=== PATIENT | female | born 1935 | race Caucasian/White ===

== ENCOUNTER 2023-07-15 11:51 | Day surgery (SDC) | payer MEDICARE, MEDICAID, SELFPAY ==
--- NOTE | 2023-07-15 | EGD_PTH ---
PATIENT: KURT MATHEWS LOC: EN U#:[id number] AGE/SX: 88/F ROOM: RE07/15/[address]: Dr. Frantz Romero DO : 1935 BED: DIS: 07/15/2023 SPEC #: [id number] RECD: 07/15/23 16:23 STATUS: VIRIDIANA DOWNEY #: [id number] REYNA: 07/15/23 00:[address]: Frantz Romero DEPT: SURGICAL PATHOLOGY RECD BY: Albert Lincoln ENTERED: 07/16/23 07:41 SP TYPE: EGD BIOPSY OT DR: Dr. Blake Guzman MD Tissues: A - Duodenum, NOS B - Gastric mucous membrane C - Esophageal mucous membrane Procedures: Special Stain Group II Surgery Specimen Level IV Alcian Blue/PAS (control) HEADER OPERATION: EGD with biopsies PRE-OP DIAGNOSIS: Abnormal CT of the abdomen, nausea, vomiting TISSUE SUBMITTED: A - Duodenal ulcer, B - Gastric body biopsy, C - Distal esophagus lesion MICROSCOPIC DIAGNOSIS A. Duodenal ulcer, biopsy: Minimal nonspecific chronic inflammation. B. Gastric body, biopsy: Chronic gastritis. See comment. C. Distal esophagus, biopsy: Gastroesophageal junctional mucosa with mild chronic inflammation. No evidence of goblet cell metaplasia. See comment. AM:fabienne 07/17/2023 COMMENT B. The results of immunohistochemistry for Helicobacter pylori will be reported separately ([id number]). C. Alcian blue/PAS stain with matched control supports the above diagnosis. MICROSCOPIC DESCRIPTION Slides are reviewed. GROSS DESCRIPTION A - Received in fixative is one container labeled with the patient's name and designated duodenal ulcer. The specimen consists of multiple irregular fragments of light nolan soft tissue that in aggregate measure 1.0 x 0.3 x 0.1 cm. The specimen is totally submitted in one cassette. B - Received in fixative is one container labeled with the patient's name and designated gastric body biopsy. The specimen consists of multiple irregular fragments of light nolan soft tissue that in aggregate measure 1.5 x 0.5 x 0.1 cm. The specimen is totally submitted in one cassette. C - Received in fixative is one container labeled with the patient's name and designated distal esophagus. The specimen consists of one irregular fragment of light nolan soft tissue that measures 0.6 x 0.3 x 0.1 cm. The specimen is totally submitted in one cassette. / AM:fabienne 07/16/2023 TC:3 CPT: 50687 x3, 68544
[2023-07-15] MEDS: Lactated Ringers 1,000 ML 15 ML IV (12:33)
[2023-07-15 12:41] VITALS: BP 145/81; PULSE 100; RESP 18; TEMP 35.8; O2SAT 93; BMI 26.9
--- NOTE | 2023-07-15 13:07 | HP.PCM_ITS ---
History and Physical Date of Admission: 07/15/23 88 F who presents to the office today for Residing in [facility] with a history of drug induced parkinsonism, weakness, dementia, hyperlipidemia, depression, HTN s/p cholecystectomy, CDI history. History of acute psychiatric hospitalization for confusion, irritability and suicidal ideations. Reported pain under her ribs and underwent CT scan prompting GI referral ? Biochemical CBC, CMP, LFT without pertinent abnormality ? CT abd/pel 12.16.22 JPH pneumobilia; s/p cholecystectomy; CBD measuring 12mm with distal duct irregular calcification measuring 11x6mm; renal cyst. *BGI established 05.14.23 daily N/V and upper abdominal pain have been present this week; reports increased anxiety/depression that have been only fairly controlled recently. BM occur daily with intermittent difficulty with constipation/incomplete evacuation/hard stools. ROS Const Constitutional: No anorexia, fatigue, fever(s), weight change or sleep problems Eyes Eyes: No change in vision ENT ENT: No abnormal hearing, difficulty swallowing, mouth lesions, tongue swelling or throat swelling Resp Respiratory: No cough or shortness of breath Cardio Cardiology: No chest pain at rest, chest pain with exertion, shortness of breath or dyspnea on exertion Gastro GI: No difficulty swallowing Genitourinary-Female: No difficulty urinating or burning urination Musc Musculoskeletal: No joint pain, joint swelling, muscle weakness or decreased muscle mass Skin Skin: No hair loss in leg, yellowing of the eye, itchy eyes, rash, skin ulcer or skin swelling Neuro Neurology: No abnormal hearing, abnormal movements, confusion, unsteady gait/balance or memory loss Psych Psychiatric: No anxiety, No confusion and No memory loss Endo Endocrine: No fatigue or weight change Aller/Imm Allergy/Immunologic: No itchy eyes, throat swelling or tongue swelling Dameon/Lymp Hematologic/Lymphatic: No easy bleeding, easy bruising or enlarged lymph nodes Exam Const General: cooperative and comfortable Nutritional Appearance: average body habitus and well nourished [facility] Head: normal to inspection Ears: hearing grossly normal bilaterally Nose: external nose normal Face and sinus: normal facial exam Mouth: oral mucosae normal Throat: posterior oropharynx normal Eyes General: appearance normal, both eyes and all related structures Neck Neck: normal visual inspection Chest Chest palpation & inspection: normal inspection of the chest and normal palpation of entire chest wall Resp Effort & Inspection: normal respiratory effort Auscultation: Bilateral: Clear to Auscultation Cardio Palpation: normal PMI Rate: regular rate Rhythm: regular rhythm GI Inspection: normal to inspection Auscultation: normal bowel sounds Percussion: normal to percussion Palpation: no hepatosplenomegaly Skin General: no rashes or lesions noted Neuro General: patient alert Extrem General: normal to inspection Psych Affect: normal affect Assessment and Plan Assessment and Plan (1) Abnormal CT of the abdomen: Status: Chronic Plan: She differential diagnosis for her dilated common bile duct with some mild pneumobilia in the setting of secondary to cholecystectomy, less likely choledochal cyst, choledocholithiasis versus malignancy. Such as. I would recommend MRCP to evaluate her hepatobiliary system (2) Nausea & vomiting: Status: Chronic Qualifiers: Vomiting type: unspecified Qualified Code(s): R11.2 - Nausea with vomiting, unspecified Plan: The differential diagnosis for her nausea and vomiting with abdominal pain is peptic ulcer disease involving the stomach and/or duodenum. I will give her Protonix bid and Sucralfate BID. If she is not any better we will schedule an upper endoscopy. Medications: New I have examined the patient and the H&P has been reviewed. There are no clinical changes since date of exam.
--- NOTE | 2023-07-15 13:15 | IMM_PTH ---
PATIENT: KURT MATHEWS LOC: EN U#:[id number] AGE/SX: 88/F ROOM: RE07/15/[address]: Dr. Frantz Romero DO : 1935 BED: DIS: 07/15/2023 SPEC #: [id number] RECD: 07/16/23 13:23 STATUS: VIRIDIANA REQ #: [id number] REYNA: 07/15/23 13:[address]: Frantz Romero DEPT: IMMUNOHISTOCHEMISTRY RECD BY: Nathalie Graves ENTERED: 07/16/23 13:24 SP TYPE: IMMUNO OTHR DR: Dr. Blake Guzman MD Tissues: B - Stomach, NOS Procedures: H Pylori (initial) PHYSICIAN & INSTITUTION [place] [id number] SPECIMEN INFORMATION: Tissue Source: B - Gastric body Clinical Info: Nausea, vomiting Specimen Number: [id number] CPT code: 89118 METHODOLOGY: Deparaffinized sections of prefer/formalin-fixed tissue or PAP/DQ stained slides are incubated with monoclonal/polyclonal antibodies/oligonucleotide probes. Localization is made via biotin free immunoperoxidase method. Appropriate controls are performed and reacted as expected. Results on target cell population are indicated in the following table: RESULTS: ANTIBODY / CLONE RESULT Block B H Pylori (polyclonal) negative These tests were developed and their performance characteristics determined by [facility]. They may not have been cleared or approved by the U.S. Food and Drug Administration. The FDA has determined that such clearance or approval is not necessary. The above immunohistochemical/dualISH markers are ordered and reviewed by the Pathologist. INTERPRETATION: B. Gastric body, biopsy: Negative for Helicobacter pylori organisms. AM:fabienne 07/17/2023
[2023-07-15 13:40] VITALS: BP 110/64; BP 145/81; PULSE 73; RESP 16; TEMP 36.8; O2SAT 98
[2023-07-15 13:45] VITALS: BP 110/61; BP 145/81; PULSE 79; RESP 18; O2SAT 93
[2023-07-15 13:50] VITALS: BP 110/64; BP 145/81; PULSE 75; RESP 16; O2SAT 95
--- NOTE | 2023-07-15 13:52 | OP.EGD_ITS ---
Patient Name: Alyssa Fajardo Procedure Date: 07/15/2023 1:12 PM Date of : 1935 Age: 88 Procedure: Upper GI endoscopy Indications: Epigastric abdominal pain, Abdominal pain in the left upper quadrant Providers: Frantz Romero DO Medicines: Monitored Anesthesia Care Patient Profile: This is an 88 year old female. Refer to note in patient chart for documentation of history and physical. Patient has symptoms of acute left upper quadrant abdominal pain. Complications: No immediate complications. Procedure: Pre-Anesthesia Assessment: - Prior to the procedure, a History and Physical was performed, and patient medications and allergies were reviewed. The patient is competent. The risks and benefits of the procedure and the sedation options and risks were discussed with the patient. All questions were answered and informed consent was obtained. Patient identification and proposed procedure were verified by the physician in the pre-procedure area. Mental Status Examination: alert and oriented. Airway Examination: normal oropharyngeal airway and neck mobility. Respiratory Examination: clear to auscultation. CV Examination: normal. Prophylactic Antibiotics: The patient does not require prophylactic antibiotics. Prior Anticoagulants: The patient has taken no anticoagulant or antiplatelet agents. ASA Grade Assessment: III - A patient with severe systemic disease. After reviewing the risks and benefits, the patient was deemed in satisfactory condition to undergo the procedure. The anesthesia plan was to use monitored anesthesia care (MAC). Immediately prior to administration of medications, the patient was re-assessed for adequacy to receive sedatives. The heart rate, respiratory rate, oxygen saturations, blood pressure, adequacy of pulmonary ventilation, and response to care were monitored throughout the procedure. The physical status of the patient was re-assessed after the procedure. After obtaining informed consent, the endoscope was passed under direct vision. Throughout the procedure, the patient's blood pressure, pulse, and oxygen saturations were monitored continuously. The Endoscope was introduced through the mouth, and advanced to the second part of duodenum. The upper GI endoscopy was accomplished without difficulty. The patient tolerated the procedure well. 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 Biopsies were taken with a cold forceps for histology. Verification of patient identification for the specimen was done. Estimated blood loss was minimal. Patchy moderate inflammation characterized by congestion (edema) and erythema was found in the gastric body. Biopsies were taken with a cold forceps for histology. Verification of patient identification for the specimen was done. Biopsies were taken with a cold forceps for Helicobacter pylori testing. Verification of patient identification for the specimen was done. Estimated blood loss was minimal. Two non-bleeding linear duodenal ulcers with no stigmata of bleeding were found in the first portion of the duodenum. The largest lesion was 6 mm in largest dimension. Biopsies were taken with a cold forceps for histology. Verification of patient identification for the specimen was done. Estimated blood loss was minimal. 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 Biopsied. - Bile gastritis. Biopsied. - Non-bleeding duodenal ulcers with no stigmata of bleeding. Biopsied. Recommendation: - Discharge patient to a [facility]. - Resume previous diet. - Continue present medications. - Await pathology results. - Repeat upper endoscopy in 3 months for surveillance. - Use Protonix (pantoprazole) 40 mg PO BID for 8 weeks. - MRCP to evaluate abnormal dilation that was seen in CT scanner Procedure Code(s): --- Professional --- 91350, Esophagogastroduodenoscopy, flexible, transoral; with biopsy, single or multiple CPT copyright 2021 [employer]. All rights reserved. The codes documented in this report are preliminary and upon benefits technician review may be revised to meet current compliance requirements. Frantz Romero DO 07/15/2023 1:51:54 PM This report has been signed electronically. Number of Addenda: 0 Note Initiated On: 07/15/2023 1:12 PM
[2023-07-15 13:53] VITALS: BP 122/66; BP 145/81; PULSE 74; RESP 18; TEMP 36.7; O2SAT 94
[2023-07-15 14:11] VITALS: BP 145/81
== END 2023-07-15 14:28 | disposition home or self-care (01) ==
LOC: EN 11:55 → AC 12:00
PROVIDERS: PCP Internal Medicine; Referring Provider Internal Medicine; Visit Provider Internal Medicine Gastroenterology
PROC: 0DJ08ZZ Inspection of Upper Intestinal Tract, Via Natural or Artificial Opening Endoscopic (ICD-10-PCS; CPT 43235; principal; 2023-07-15 13:10)
DX: K26.7 Chronic duodenal ulcer without hemorrhage or perforation (principal); F03.90 Unspecified dementia, unspecified severity, without behavioral disturbance, psychotic disturbance, mood disturbance, and anxiety; K21.00 Gastro-esophageal reflux disease with esophagitis, without bleeding; K29.50 Unspecified chronic gastritis without bleeding; K31.89 Other diseases of stomach and duodenum; R10.13 Epigastric pain; G20.C Parkinsonism, unspecified; I10 Essential (primary) hypertension; E78.00 Pure hypercholesterolemia, unspecified; Z86.73 Personal history of transient ischemic attack (TIA), and cerebral infarction without residual deficits; Z86.711 Personal history of pulmonary embolism; Z79.01 Long term (current) use of anticoagulants; Z79.899 Other long term (current) drug therapy
CPT/HCPCS: 43239; 88305; 88313; 88342; J7120; J2405

== ENCOUNTER → 2023-07-28 | Outpatient (CLI) | payer MEDICARE, MEDICAID, SELFPAY ==
--- NOTE | 2023-07-28 08:17 | MRI_ITS ---
EXAM: MR ABDOMEN WITHOUT INTRAVENOUS CONTRAST, MRCP PROTOCOL CLINICAL INDICATION: abnormal CT findings TECHNIQUE: Multiplanar and multisequence MR images of the abdomen without intravenous contrast obtained with MRCP sequence. Three-dimensional post-processing reconstructions were performed. COMPARISON: No relevant prior studies available. FINDINGS: LOWER THORAX: Unremarkable. No pleural effusion. LIVER: Unremarkable. Normal morphology. GALLBLADDER AND BILE DUCTS: Gallbladder not visualized. Dilated common bile duct measuring up to 1.2 cm with mild intrahepatic biliary dilatation due to multiple small stones in the distal common bile duct. PANCREAS: Small cyst measuring 9 mm in the tail the pancreas. No pancreatic duct dilation. SPLEEN: Unremarkable. Non-enlarged. ADRENALS: Unremarkable. No nodules. KIDNEYS AND URETERS: Simple bilateral renal cysts. No follow-up of these simple cysts is necessary. Normal renal size and position. No hydronephrosis. INTRAPERITONEAL SPACE: Unremarkable. No ascites or other fluid collection. VASCULATURE: Unremarkable. Abdominal aorta is non-dilated. LYMPH NODES: No enlarged lymph nodes. MRI/MRCP Abdomen without Contrast IMPRESSION: 1. Gallbladder not visualized. 2. Dilated common bile duct measuring up to 1.2 cm with mild intrahepatic biliary dilatation due to multiple small stones in the distal common bile duct. 3. Small cyst measuring 9 mm in the tail the pancreas. ACR White Paper guidelines (Chetna et al. JACR 2017; 14(7):911-923) suggest a contrast-enhanced, pancreas-protocol abdominal CT or MR in 2 years. Electronically Signed: Ho Rothman MD at 20:25 [facility] ,
== END | disposition home or self-care (01) ==
PROVIDERS: PCP Internal Medicine; Referring Provider Internal Medicine Gastroenterology; Visit Provider Internal Medicine Gastroenterology
DX: R93.5 Abnormal findings on diagnostic imaging of other abdominal regions, including retroperitoneum (principal); R11.2 Nausea with vomiting, unspecified
CPT/HCPCS: 74181

== ENCOUNTER 2023-10-07 10:39 | Day surgery (SDC) | payer MEDICARE, MEDICAID, SELFPAY ==
[2023-10-07] VITALS (8 sets, daily range): BP systolic 111–132; BP diastolic 60–83; PULSE 84–89; RESP 14–18; TEMP 36.3–36.6; O2SAT 92–94; BMI 27.8
--- NOTE | 2023-10-07 10:58 | EKG12_ITS ---
Test Reason : PREOP Blood Pressure : / mmHG Vent. Rate : 083 BPM Atrial Rate : 083 BPM P-R Int : 160 ms QRS Dur : 090 ms QT Int : 416 ms P-R-T Axes : 035 -41 043 degrees QTc Int : 488 ms Normal sinus rhythm Left axis deviation Abnormal ECG No previous ECGs available Confirmed by SHAYNA KENNEDY, ANGIE ([id number]), field map editor LINDA WHITE ([id number]) on 10/09/2023 6:20:30 AM Referred By: Blake Guzman Confirmed By:ANGIE CORRAL MD
--- NOTE | 2023-10-07 11:00 | RAD_ITS ---
STUDY: ERCP. REASON FOR EXAM: Female, 88 years old. Dilated ducts. FLUOROSCOPY TIME (if supplied): ( 1 minute and 7 seconds ) minutes/seconds. 14.52 mGy TECHNIQUE: An ERCP was performed by the financial administration officer. Fluoroscopic services were provided. COMPARISON: None. FINDINGS: Dilated intra and extrahepatic biliary ducts. Balloon dilatation of the common bile duct was performed. IVC filter is present. RAD/ERCP Biliary/Pancreas IMPRESSION: Dilated intra and extra hepatic biliary ducts with balloon dilatation of the common bile Electronically Signed: Elmer Jimenez MD at 14:43 EST ,
[2023-10-07] MEDS: Lactated Ringers 1,000 ML 15 ML IV (11:11)
--- NOTE | 2023-10-07 12:14 | HP.PCM_ITS ---
History and Physical Date of Admission: 10/07/23 . 88 F who presents to the office today for an ERCP Residing in [facility] with a history of drug induced parkinsonism, weakness, dementia, hyperlipidemia, depression, HTN s/p cholecystectomy, CDI history. History of acute psychiatric hospitalization for confusion, irritability and suicidal ideations. Reported pain under her ribs and underwent CT scan prompting GI referral ? Biochemical CBC, CMP, LFT without pertinent abnormality ? CT abd/pel 12.16.22 JPH pneumobilia; s/p cholecystectomy; CBD measuring 12mm with distal duct irregular calcification measuring 11x6mm; renal cyst. MRI/MRCP Abdomen without Contrast IMPRESSION: 1. Gallbladder not visualized. 2. Dilated common bile duct measuring up to 1.2 cm with mild intrahepatic biliary dilatation due to multiple small stones in the distal common bile duct. 3. Small cyst measuring 9 mm in the tail the pancreas *BGI established 9.27.23 daily N/V and upper abdominal pain have been present this week; reports increased anxiety/depression that have been only fairly controlled recently. BM occur daily with intermittent difficulty with constipation/incomplete evacuation/hard stools. ROS Const Constitutional: No anorexia, fatigue, fever(s), weight change or sleep problems Eyes Eyes: No change in vision ENT ENT: No abnormal hearing, difficulty swallowing, mouth lesions, tongue swelling or throat swelling Resp Respiratory: No cough or shortness of breath Cardio Cardiology: No chest pain at rest, chest pain with exertion, shortness of breath or dyspnea on exertion Gastro GI: No difficulty swallowing Genitourinary-Female: No difficulty urinating or burning urination Musc Musculoskeletal: No joint pain, joint swelling, muscle weakness or decreased muscle mass Skin Skin: No hair loss in leg, yellowing of the eye, itchy eyes, rash, skin ulcer or skin swelling Neuro Neurology: No abnormal hearing, abnormal movements, confusion, unsteady gait/balance or memory loss Psych Psychiatric: No anxiety, No confusion and No memory loss Endo Endocrine: No fatigue or weight change Aller/Imm Allergy/Immunologic: No itchy eyes, throat swelling or tongue swelling Dameon/Lymp Hematologic/Lymphatic: No easy bleeding, easy bruising or enlarged lymph nodes Exam Const General: cooperative and comfortable Nutritional Appearance: average body habitus and well nourished [facility] Head: normal to inspection Ears: hearing grossly normal bilaterally Nose: external nose normal Face and sinus: normal facial exam Mouth: oral mucosae normal Throat: posterior oropharynx normal Eyes General: appearance normal, both eyes and all related structures Neck Neck: normal visual inspection Chest Chest palpation & inspection: normal inspection of the chest and normal palpation of entire chest wall Resp Effort & Inspection: normal respiratory effort Auscultation: Bilateral: Clear to Auscultation Cardio Palpation: normal PMI Rate: regular rate Rhythm: regular rhythm GI Inspection: normal to inspection Auscultation: normal bowel sounds Percussion: normal to percussion Palpation: no hepatosplenomegaly Skin General: no rashes or lesions noted Neuro General: patient alert Extrem General: normal to inspection Psych Affect: normal affect Assessment and Plan Assessment and Plan (1) Abnormal CT of the abdomen: Status: Chronic Plan: She differential diagnosis for her dilated common bile duct with some mild pneumobilia in the setting of secondary to cholecystectomy, less likely choledochal cyst, choledocholithiasis versus malignancy. Such as. I would ann marie mmend MRCP to evaluate her hepatobiliary system (2) Nausea & vomiting: Status: Chronic Qualifiers: Vomiting type: unspecified Qualified Code(s): R11.2 - Nausea with vomiting, unspecified Plan: The differential diagnosis for her nausea and vomiting with abdominal pain is peptic ulcer disease involving the stomach and/or duodenum, choledocholithiasis as seen on MRCP. She will undergo ERCP with evaluation of the viability system removal of stones. She was explained alternatives, risk, benefits include not withstanding bleeding, infection, sepsis, perforation, need for emergent urgent . She have an ASA of 3.. I will give her Protonix bid and Sucralfate BID. Medications: New I have examined the patient and the H&P has been reviewed. There are no clinical changes since date of exam. Charges/Coding Visit Charges Inpatient E&M: 92887 Init Hosp L3
--- NOTE | 2023-10-07 12:45 | OP.ERCP_ITS ---
Patient Name: Alyssa Fajardo Procedure Date: 10/07/2023 11:56 AM Date of : 1935 Age: 88 Procedure: ERCP Indications: Bile duct stone(s) Providers: Frantz Romero DO Referring MD: Frantz Romero DO Medicines: Monitored Anesthesia Care Patient Profile: This is an 88 year old female. Refer to note in patient chart for documentation of history and physical. Patient has symptoms of acute right upper quadrant abdominal pain. This patient has no history of previous ERCP. She is status post laparoscopic cholecystectomy. Complications: No immediate complications. Procedure: Pre-Anesthesia Assessment: - Prior to the procedure, a History and Physical was performed, and patient medications and allergies were reviewed. The patient is competent. The risks and benefits of the procedure and the sedation options and risks were discussed with the patient. All questions were answered and informed consent was obtained. Patient identification and proposed procedure were verified by the physician. Mental Status Examination: alert and oriented. Airway Examination: normal oropharyngeal airway and neck mobility. Respiratory Examination: clear to auscultation. CV Examination: normal. Prophylactic Antibiotics: The patient does not require prophylactic antibiotics. Prior Anticoagulants: The patient has taken no anticoagulant or antiplatelet agents. ASA Grade Assessment: III - A patient with severe systemic disease. After reviewing the risks and benefits, the patient was deemed in satisfactory condition to undergo the procedure. The anesthesia plan was to use monitored anesthesia care (MAC). Immediately prior to administration of medications, the patient was re-assessed for adequacy to receive sedatives. The heart rate, respiratory rate, oxygen saturations, blood pressure, adequacy of pulmonary ventilation, and response to care were monitored throughout the procedure. The physical status of the patient was re-assessed after the procedure. After obtaining informed consent, the scope was passed under direct vision. Throughout the procedure, the patient's blood pressure, pulse, and oxygen saturations were monitored continuously. The Duodenoscope was introduced through the mouth, and advanced to the duodenum and used to inject contrast into the bile duct and ventral pancreatic duct. The ERCP was accomplished without difficulty. The patient tolerated the procedure well. Scope In: 12:23:41 PM Scope Out: 12:37:00 PM Total Procedure Duration Time 0 hours 13 minutes 19 seconds Findings: The sisal operator film was normal. The esophagus was successfully intubated under direct vision. The scope was advanced to a normal major papilla in the descending duodenum without detailed examination of the pharynx, larynx and associated structures, and upper GI tract. The upper GI tract was grossly normal. The bile duct was deeply cannulated with the short-nosed traction sphincterotome. Contrast was injected. I personally interpreted the bile duct and pancreatic duct images. There was brisk flow of contrast through the ducts. Image quality was excellent. Contrast extended to the entire biliary tree. Choledocholithiasis was found in a nondilated duct. A cholecystectomy had been performed. A straight Roadrunner wire was passed into the biliary tree. A 5 mm biliary sphincterotomy was made with a traction (standard) sphincterotome using ERBE electrocautery. There was no post-sphincterotomy bleeding. The biliary tree was swept with a 12 mm balloon starting at the bifurcation. Sludge was swept from the duct. All stones were removed. Impression: - The patient has had a cholecystectomy. - Choledocholithiasis was found. Complete removal was accomplished by biliary sphincterotomy and balloon extraction. - A biliary sphincterotomy was performed. - The biliary tree was swept. Procedure Code(s): --- Professional --- 22546, Endoscopic retrograde cholangiopancreatography (ERCP); with removal of calculi/debris from biliary/pancreatic duct(s) 56030, Endoscopic retrograde cholangiopancreatography (ERCP); with sphincterotomy/papillotomy 58136, 26, Combined endoscopic catheterization of the biliary and pancreatic ductal systems, radiological supervision and interpretation CPT copyright 2021 [employer]. All rights reserved. The codes documented in this report are preliminary and upon metal milling machine operator review may be revised to meet current compliance requirements. Frantz Romero DO 10/07/2023 12:45:21 PM This report has been signed electronically. Number of Addenda: 0 Note Initiated On: 10/07/2023 11:56 AM
--- NOTE | 2023-10-07 12:46 | OP.CCLET_ITS ---
10/07/2023 Blake Guzman Re : ERCP procedure for Alyssa Fajardo Dear Megan This procedure was performed on Saturday, October 07, 2023. My impressions and recommendations are as follows: Impressions : - The patient has had a cholecystectomy. - Choledocholithiasis was found. Complete removal was accomplished by biliary sphincterotomy and balloon extraction. - A biliary sphincterotomy was performed. - The biliary tree was swept. Recommendations : My findings are described in the full procedure note, which is enclosed. If I can be of further assistance, please feel free to contact me at . Sincerely, Frantz Romero, 10/07/2023 12:45:21 PM This report has been signed electronically.
== END 2023-10-07 14:25 | disposition skilled nursing facility (03) ==
LOC: EN 10:42 → AC 10:43
PROVIDERS: PCP Internal Medicine; Referring Provider Internal Medicine; Visit Provider Internal Medicine Gastroenterology
PROC: (CPT 43260; principal; 2023-10-07 11:40)
DX: K80.50 Calculus of bile duct without cholangitis or cholecystitis without obstruction (principal); F03.90 Unspecified dementia, unspecified severity, without behavioral disturbance, psychotic disturbance, mood disturbance, and anxiety; I10 Essential (primary) hypertension; Z90.49 Acquired absence of other specified parts of digestive tract; Z79.01 Long term (current) use of anticoagulants; Z79.899 Other long term (current) drug therapy; Z86.73 Personal history of transient ischemic attack (TIA), and cerebral infarction without residual deficits
CPT/HCPCS: 43264; 43262; 74330; 76000; 93005; J7120; J0330; J2405

== ENCOUNTER → 2024-10-11 | Outpatient (CLI) | payer MEDICAID, SELFPAY ==
--- NOTE | 2024-10-11 06:38 | CT_ITS ---
PROCEDURE: ABDOMEN/PELVIS WITH CONTRAST REASON FOR EXAM: Lower abdominal pain. TECHNIQUE: Abdomen and pelvis CT with intravenous contrast. No oral contrast. IV CONTRAST: 100 cc of Isovue-300. COMPARISON: 1 FINDINGS: Lung bases: Minimal degree of increased markings at the lung bases suggestive of either linear atelectasis and/or scarring. Liver: There is evidence of pneumobilia in the left intrahepatic biliary ducts in keeping with prior history of cholecystectomy and common bile duct exploration. Gallbladder: Surgically absent. Spleen: Unremarkable. Pancreas: Unremarkable. Adrenals: Unremarkable. Kidneys: There is a 4.7 cm x 4.4 cm cyst in the lower pole of the left kidney. Bladder: Unremarkable. Reproductive Organs: Prior hysterectomy. Adnexal regions are unremarkable. Bowel: Colonic diverticulosis without diverticulitis. Prior anterior abdominal wall hernia repair with a mesh. Appendix: Status post appendectomy. Lymph nodes: No suspicious lymph node enlargement. Vasculature: Mild diffuse atherosclerotic calcifications are noted. A filter is seen within the inferior vena cava. Peritoneum / Retroperitoneum: No ascites. No free air. Bones: Mild degenerative changes of the spine. CT/Abdomen/Pelvis WITH Contrast IMPRESSION: Pneumobilia in the left intrahepatic biliary ducts aching with prior cholecyste ctomy. The common bile duct measures upper limits of normal. Left renal cyst. A filter is seen within the inferior vena cava. Status post hysterectomy and status post appendectomy. One or more dose reduction techniques were used (e.g., Automated exposure contr ol, adjustment of the mA and/or kV according to patient size, use of iterative reconstruction technique). Reading Location: [facility]
== END | disposition home or self-care (01) ==
LOC: CT 06:35
PROVIDERS: PCP Internal Medicine; Referring Provider Internal Medicine Gastroenterology; Visit Provider Internal Medicine Gastroenterology
DX: R11.2 Nausea with vomiting, unspecified (principal)
CPT/HCPCS: 74177; Q9967; A4216

== ENCOUNTER → 2024-11-25 | Outpatient (CLI) | payer MEDICARE, MEDICAID, SELFPAY ==
--- NOTE | 2024-11-25 11:29 | NM_ITS ---
PROCEDURE: GASTRIC EMPTYING STUDY 11/25/2024 REASON FOR EXAM: Nausea and vomiting. Status post cholecystectomy and hysterectomy. COMPARISON: CT abdomen and pelvis dated 10/11 2024. TECHNIQUE: The patient ingested a standard meal of oatmeal combine with the radionuclide. There was no vomiting postprandially. Anterior and posterior planar images of the upper abdomen were obtained for 1 minute intervals for a total of 60 minutes immediately following the meal. Regions of interest were drawn, and a geometric mean was used to calculate a [id number]. Fasting Blood Glucose (if diabetic): N/A Medications taken in the past 24 hours that may affect gastric emptying: None RADIOPHARMACEUTICAL: 1.2 mCi of Technetium Sulfur Colloid FINDINGS: Percent activity remaining in stomach: 1 hour 40 % (normal 37-90%) NM/Gastric Emptying Study IMPRESSION: Normal gastric emptying study with 40% of activity remaining in the stomach at 60 minutes. Reading Location: [place] [id number]
== END | disposition home or self-care (01) ==
LOC: NM 11:25
PROVIDERS: PCP Internal Medicine; Referring Provider Internal Medicine Gastroenterology; Visit Provider Internal Medicine Gastroenterology
DX: R11.2 Nausea with vomiting, unspecified (principal)
CPT/HCPCS: 78264; A9541